=== PATIENT | female | born 2000 | race African-American/Black ===

== ENCOUNTER 2020-06-19 22:48 | Emergency (ER) | payer SELFPAY ==
[~2020-06-19] VITALS: Ht 157.5 cm; Wt 55.0 kg
[2020-06-19] MEDS ORDERED: ONDANSETRON HCL 4MG/2ML INJ IV STA (23:25)
[2020-06-19] MEDS ORDERED: MORPHINE SULFATE 4 MG/ML CPJ (NOT FOR IM USE) IV STA (23:25)
[2020-06-20 02:00] VITALS: BP 117/71
== END 2020-06-20 02:00 | disposition home or self-care (01) ==
LOC: ER 23:44
DX: S40.011A Contusion of right shoulder, initial encounter (principal); W17.89XA Other fall from one level to another, initial encounter; Y93.39 Activity, other involving climbing, rappelling and jumping off; Y92.89 Other specified places as the place of occurrence of the external cause
CPT/HCPCS: 73030; 81025; 93005; 96374; 96375; 99284; J2270; J2405